=== PATIENT | male | born 1965 | race African-American/Black ===

== ENCOUNTER 2024-08-31 14:41 | Emergency (ER) | payer OTHER ==
--- OUTSIDE RECORDS SUMMARY | 2024-08-31 14:44 | XMS REPORT | Continuity of Care Document ---
Author Name Unknown Address [address] [facility] [address] [place] [address] [facility] Address [address] [facility] [address] [place] [address] Care Team Providers Care Coffin Maker Name Role Phone Pcp, Patient Does Not Have A Primary Care Physic satnam YUSRA CASTLE Attending Clinician LILIANA Nicholas Attending Clinician BERNA Francis Attending Clinician Berna Connelly MD Attending Clinician HANSEL Attending Clinician Unavailable ADELE KISER Attending Clinician Unavail able ELDER CERNA Attending Clinician Unavailable Tom Attending Clinician Unavailable ALDAIR SWAN Attending Clinician UnavailSONDRA Montesinos Attending Clinician Unavailable TAE OLIVO Attending Clinician Unavailable JAZZMINE HART Attending Clinician Unavailable DANE NIELSON Attending Clinician Unavailable JUSTIN VASQUEZ Attending Clinician Unavailable PEPITO SCHULTZ Attending Clinician Unavailab MIGUEL ANGEL Brown Attending Clinician Unavailable DIOR UGARTE Attending Clinician Unavailable AYDEN PERALTA Attending Clinician Unavailable YUSRA CASTLE Admitting Clinician Unavailenriqueta HAMM Admitting Clinician Unavailable Tom Admitting Clinician Unavailable JAZZMINE HART Admitting Clinician Unavailable AYDEN PERALTA Admitting Clinician Unavailable DANE NIELSON Admitting Clinician Unavailable Payers Payer Name Policy Type Policy Number Effective Date Expirati on Date Source [facility] DUAL COMP CHOICE PPO [id number] 2022 00:00:00 [facility] [id number] 2022 00:00:00 [facility] (MEDICARE REPLACEMENT/ADVANTA GE - HMO) [id number] 2019 00:00:00 [facility] (MEDICAID HMO) [id number] 2016 00:00:00 Problems Condition Name Condition Details Condition Category Status Onset Date Resolution Date Last Treatment Date Treating Clinician Comments Source Seizure disorder Seizure Disorder Problem Active 3-31 00:00: 00 [facility] 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 1- 00:00: 00 [facility] Depressive disorder Depressive Disorder Problem Active 1 00:00: 00 [facility] Seizure Seizure Problem Active 09-16 00:00: 00 [facility] Lung mass Lung Mass Problem Active [facility] Dysphagia Dysphagia Problem Active [facility] Hypertroph y of nasal turbinates Hypertroph y of Nasal Turbinates Problem Active [facility] Malignant tumor of larynx Malignant Tumor of Larynx Problem Active [facility] Smoker Smoker Problem Active [facility] Maxillary sinusitis Maxillary Sinusitis Problem [facility] Deviated nasal septum Deviated Nasal Septum Problem Active [facility] Pansinusit is Pansinusit is Problem Active [facility] Sinusitis Sinusitis Problem Active [facility] 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 [facility] Headache Headache Problem Active [facility] Hoarse Hoarse Problem Active [facility] Choking Choking Problem Active [facility] Cough Cough Problem Active [facility] Allergies, Adverse Reactions, Alerts Allergy Name Allergy Type Status Severity Reaction(s) Onset Date Inactive Date Treating Clinician Comments Source NO KNOWN ALLERGIE S Drug Class Active [facility] Grape Allergy to substanc e Active [facility] Social History Social Habit Start Date Stop Date Quantity Comments Source Exposure to SARS-CoV-2 (event) 2022-11-03 00:00:00 2022-11-13 11:23:00 Not sure [facility] Sex Ass[birth year] At 1965 00:00:00 1965 00:00:00 [facility] Smoking Status Start Date Stop Date Source Heavy Tobacco Smoker [facility] Tobacco smoking consumption unknown [facility] Medications Ordered Medication Name Filled Medication Name Start Date Stop Date Current Medication? Ordering Clinician Indication Dosage Frequency Signature (SIG) Comments Components Source OLANZapine (ZYPREXA) injection 10 mg 11-13 16:45: 00 11-13 16:55 :00 No 10mg 10 mg, Intramuscu lar, ONCE, 1 dose, On Sat11/13/22 at 1145, TI [facility] OLANZapine 5 mg tablet 11-13 00:00: 00 Yes [id number] 5mg Take 1 tablet by mouth in the morning. [facility] divalproex 500 mg tablet,magi yed release Take 1 tablet twice a day by oral route. divalproex 500 mg tablet,magi yed release Take 1 tablet twice a day by oral route. No 1 BID divalproex 500 mg tablet,del ayed release Take 1 tablet twice a day by oral route. [facility] divalproex ER 500 mg tablet,exte nded release 24 hr Take 1 tablet twice a day by oral route. divalproex ER 500 mg tablet,exte nded release 24 hr Take 1 tablet twice a day by oral route. No divalproex ER 500 mg tablet,ext ended release 24 hr Take 1 tablet twice a day by oral route. [facility] permethrin 5 % topical cream APPLY (THOROUGHLY MASSAGE INTO SKIN FROM HEAD TO SOLES OF FEET) BY TOPICAL ROUTE ONCE LEAVE ON FOR 8-14 HR, THEN REMOVE BY THOROUGH WASHING permethrin 5 % topical cream APPLY (THOROUGHLY MASSAGE INTO SKIN FROM HEAD TO SOLES OF FEET) BY TOPICAL ROUTE ONCE LEAVE ON FOR 8-14 HR, THEN REMOVE BY THOROUGH WASHING No permethrin 5 % topical cream APPLY (THOROUGHL Y MASSAGE INTO SKIN FROM HEAD TO SOLES OF FEET) BY TOPICAL ROUTE ONCE LEAVE ON FOR 8-14 HR, THEN REMOVE BY THOROUGH WASHING [facility] quetiapine 400 mg tablet Take 2 tablets every day by oral route at bedtime for 30 days. quetiapine 400 mg tablet Take 2 tablets every day by oral route at bedtime for 30 days. No 2 Q1D quetiapine 400 mg tablet Take 2 tablets every day by oral route at bedtime for 30 days. [facility] Vital Signs Vital Name Observation Time Observation Value Comments S ource BP Diastolic 2019-09-16 00:00:00 87 mm[Hg] [facility] Height 2019-09-16 00:00:00 71 [in_i] [facility] BMI (Body Mass Index) 2019-09-16 00:00:00 19.2 kg/m2 [facility] BP Systolic 2019-09-16 00:00:00 131 mm[Hg] [facility] Body Weight 2019-09-16 00:00:00 2208 [oz_av] [facility] BP Diastolic 2019-05-19 00:00:00 68 mm[Hg] [facility] BP Systolic 2019-05-19 00:00:00 97 mm[Hg] [facility] Body Weight 2019-05-19 00:00:00 2256 [oz_av] [facility] Procedures Procedure Date / Time Performed Performing Clinicia n Source NOTICE OF PRIVACY PRACTICES 2022-11-13 16:15:54 Doctor Unassigned, [place] [facility] CONSENT/REFUSAL FOR DIAGNOSIS AND TREATMENT 2022-11-13 16:15:29 Doctor Unassigned, [place] [facility] Encounters Start Date/Time End Date/Time Encounter Type Admission Type Attending [facility] Care Department Encounter ID Source 2024-02-09 15:06:00 2024-02-12 18:00:00 Inpatient ER YUSRA CASTLE [facility] [id number] [facility] 2023-09-22 10:44:00 2023-09-22 10:44:00 Outpatient LILIANA MUNOZ [facility] [id number] [facility] 2022-11-13 11:23:00 2022-11-13 12:52:00 Emergency X BERNA URRUTIA [facility] ERT [id number] [facility] 2022-11-13 11:23:00 2022-11-13 12:52:00 Emergency Berna Urrutia [facility] [id number] [facility] 2022-03-22 00:00:00 2022-03-22 00:00:00 Outpatient EMILY MCCLOUD [facility] [id number] [facility] 2021-09-11 23:40:00 2021-09-12 01:44:00 Emergency ER ADELE KISER [facility] [id number] [facility] 2020-11-25 10:33:00 2020-11-25 11:10:00 Emergency ER ELDER CERNA [facility] [id number] [facility] 2020-07-13 02:19:00 2020-07-13 02:19:00 Outpatient Tom MORA [facility] [id number] [facility] 2020-07-13 02:19:00 2020-07-13 02:19:00 Outpatient cMcDonald [facility] [id number] [facility] 2020-01-29 12:39:00 2020-01-29 19:15:00 Emergency ER ALDAIR SWAN [facility] [id number] [facility] 2020-01-06 01:07:00 2020-01-06 01:07:00 Outpatient cMcDonald [facility]G [id number] [facility] 2019-11-24 06:58:00 2019-11-24 06:58:00 Outpatient cMcDonald [facility] [id number] [facility] 2019-11-24 00:00:00 2019-11-24 00:00:00 Amadeo Biswas MD: [address] [facility] [address], [place] [address] , Ph. [facility] [id number] [facility] 2019-11-20 05:34:00 2019-11-20 05:34:00 Outpatient cMcDonald [facility]G [id number] [facility] 2019-09-16 10:06:00 2019-09-16 10:06:00 Outpatient cMcDonald [facility] [id number] [facility] 2019-09-16 00:00:00 2019-09-16 00:00:00 Amadeo Biswas MD: [address] [facility] [address], [place] [address] , Ph. [facility] [id number] [facility] 2019-06-30 17:31:00 2019-07-01 00:15:00 Emergency ER ALDAIR SWAN [facility] [id number] [facility] 2019-05-19 00:00:00 2019-05-19 00:00:00 Amadeo Biswas MD: [address] [facility] [address], [place] [address] , Ph. [facility] [place] [facility] [id number] [facility] 2019-03-29 16:02:00 2019-03-29 17:13:00 Emergency ER SONDRA PARNELL [facility] [id number] [facility] 2018-07-01 10:09:00 2018-07-01 13:03:00 Emergency ER TAE OLIVO [facility] [id number] [facility] 2018-01-07 09:56:00 2018-01-07 11:39:00 Emergency ER ADELE KISER [facility] [id number] [facility] 2017-01-07 12:31:00 2017-01-09 15:00:00 Inpatient ER JAZZMINE HART [facility] [id number] [facility] 2016-05-07 08:05:00 2016-05-07 08:05:00 Outpatient DANE YOUNG [facility] [id number] [facility] 2016-01-17 08:56:00 2016-01-18 09:31:00 Outpatient DANE YOUNG [facility] [id number] [facility] 2015-12-05 07:59:00 2015-12-05 07:59:00 Outpatient DANE YOUNG [facility] [id number] [facility] 2014-01-21 19:19:00 2014-01-21 20:36:00 Emergency ER JUSTIN VASQUEZ [facility] [id number] [facility] 2014-01-08 09:51:00 2014-01-08 11:00:00 Emergency ER PEPITO SCHULTZ [facility] [id number] [facility] 2006-12-17 21:32:00 2006-12-18 00:15:00 Emergency ER PEPITO SCHULTZ [facility] [id number] [facility] 2006-02-26 04:21:00 2006-02-26 07:25:00 Emergency ER MOUSTAPHAJOHN PEPITO [facility] [id number] [facility] 2005-11-09 07:04:00 2005-11-09 07:04:00 Outpatient MIGUEL ANGEL PELAEZ [facility] [id number] [facility] 2002-08-07 11:03:00 2002-08-07 11:03:00 Outpatient DIOR CONTRERAS [facility] [id number] [facility] 2002-06-10 00:32:00 2002-06-10 10:30:00 Inpatient ER AYDEN PERALTA [facility] [id number] [facility] 1999-03-25 00:49:00 1999-03-25 18:30:00 Inpatient ER DANE NIELSON [facility] [id number] [facility]
--- NOTE | 2024-08-31 17:25 | EDPHYS ---
Physician Documentation [facility] Name: Jah Solomon Age: 59 yrs Sex: Male : 1965 Arrival Date: 08/31/2024 Time: 14:41 Bed DX1 Private MD: ED Physician Nasima Cabrera HPI: 08/31 18:54 This 59 yrs old Black Male presents to ER via Ambulatory with complaints of Parasite sb4 inside of him. 18:57 patient states that he has bugs crawling under his skin and in his ears. states this sb4 has been going on for a few years. has tried several over the counter creams and ointments without any relief. states that he has been diagnosed with schizophrenia but "is not schizophrenic" only takes Seroquel PRN. Historical: - Allergies: 14:50 No Known Allergies; hb - Home Meds: 14:50 None [Active]; hb - PMHx: 18:59 Schizophrenia; sb4 - PSHx: 14:50 Leg - Right; hb ROS: 18:59 Constitutional: Negative for fever, chills, and weight loss, sb4 18:59 Skin: Positive for itching, 18:59 All other systems are negative, Exam: 18:59 Head/Face: Normocephalic, atraumatic. Eyes: Extra-ocular motions intact. Periorbital sb4 areas with no swelling, redness, or edema. ENT: Mucous membranes moist. Respiratory: No increased work of breathing, no retractions or nasal flaring. 18:59 Constitutional: The patient appears alert, awake, anxious, restless, unkempt, 18:59 Skin: excoriations left bicep. 18:59 Psych: rapid speech, flight of ideas. Vital Signs: 14:49 BP 121 / 86; Pulse 88; Resp 16; Temp 98.4; Pulse Ox 100% on R/A; Weight 64.86 kg; hb Height 6 ft. 1 in. ; Pain 3/10; 14:49 Body Mass Index 18.87 (64.86 kg, 185.42 cm) hb 14:49 Pain Scale: Adult hb MDM: 15:00 Medical Screening Exam initiated sb4 19:00 Data reviewed: vital signs, nurses notes, and as a result, I will discharge patient. sb4 Counseling: I had a detailed discussion with the patient and/or guardian regarding the historical points, exam findings, and any diagnostic results supporting the discharge/admit diagnosis, the need for outpatient follow up, for definitive care, to return to the emergency department if symptoms worsen or persist or if there are any questions or concerns that arise at home. Administered Medications: 17:46 Drug: diphenhydrAMINE IM 25 mg IM once Route: IM; Site: left deltoid; ss 17:53 Follow up: Response: No adverse reaction; Medication Administered at Departure ss 17:46 Drug: Dexamethasone IM 10 mg IM once Route: IM; Site: right deltoid; ss 17:53 Follow up: Response: No adverse reaction; Medication Administered at Departure ss Disposition Summary: 08/31/24 17:25 Discharge Ordered Notes: Location: Home sb4 Problem: new sb4 Symptoms: have improved sb4 Condition: Stable sb4 Diagnosis - Pruritus, unspecified sb4 Followup: sb4 - With: Private Physician - When: As needed - Reason: Recheck today's complaints, Re-evaluation by your physician Discharge Instructions: - Discharge Summary Sheet sb4 - Pruritus sb4 Forms: - Patient Portal Instructions sb4 - Leadership Thank You Letter sb4 Prescriptions: - Hydroxyzine HCl 25 mg Oral Tablet - take 1 tablet ORAL route every 6 hours As needed; 30 tablet; Refills: 0, sb4 Product Selection Permitted Addendum: 09/03/2024 19:59 Co-signature as Attending Physician, Nasima Cabrera MD I reviewed the patient's care g b1 provided by the Advanced Practice Provider and agree with the diagnosis and treatment plan. Signatures: Svetlana Rocha RN RN Fern Luis RN RN hb Brown, Sophia, PA-C PA-C sb4 Blocker, Gina, MD MD gb1 Corrections: (The following items were deleted from the chart) 08/31 18:59 14:50 PMHx: None; italia sbBabak 18:59 18:57 The history from the nurse's notes was reviewed and I agree with what is sb4 documented. sb4
--- NOTE | 2024-08-31 17:25 | ER ---
Nurse's Notes [facility] Name: Jah Solomon Age: 59 yrs Sex: Male : 1965 Arrival Date: 08/31/2024 Time: 14:41 Bed DX1 Private MD: Diagnosis: Pruritus, unspecified Presentation: 08/31 14:49 Chief complaint: Patient states: "Every time I go outside them fleas attack me, I have hb had them for 2 years." Abrasions noted to left hand from recent fall, bleeding controlled. Coronavirus screen: At this time, the client does not indicate any symptoms associated with coronavirus-19. Ebola Screen: No symptoms or risks identified at this time. Initial Sepsis Screen: Does the patient meet any 2 criteria? No. Patient's initial sepsis screen is negative. Does the patient have a suspected source of infection? No. Patient's initial sepsis screen is negative. Risk Assessment: Do you want to hurt yourself or someone else? Patient reports no desire to harm self or others. Onset of symptoms was 2022. 14:49 Method Of Arrival: Ambulatory hb 14:49 Acuity: ELIE 4 hb Historical: - Allergies: 14:50 No Known Allergies; hb - Home Meds: 14:50 None [Active]; hb - PMHx: 18:59 Schizophrenia; sb4 - PSHx: 14:50 Leg - Right; hb Screenin:53 Abuse screen: Denies threats or abuse. Denies injuries from another. Nutritional ss screening: No deficits noted. Tuberculosis screening: Never had TB. Assessment: 17:53 Reassessment: abrasions to L hand cleaned with soap and water, dressed with triple ss antibiotic ointment and dressed with 4x4s and KACI wrap. General: Appears in no apparent distress. uncomfortable, Behavior is calm, cooperative. Pain: Complains of pain in left hand Pain currently is 3 out of 10 on a pain scale. Neuro: Level of Consciousness is awake, alert, obeys commands, Oriented to person, place, time, situation. Respiratory: Airway is patent Respiratory effort is even, unlabored, Respiratory pattern is regular, symmetrical. EENT: Nares are clear Oral mucosa is moist. Derm: Skin is intact, is healthy with good turgor, Skin is dry, Skin is pink, warm \\T\\ dry. black. Vital Signs: 14:49 BP 121 / 86; Pulse 88; Resp 16; Temp 98.4; Pulse Ox 100% on R/A; Weight 64.86 kg; hb Height 6 ft. 1 in. ; Pain 3/10; 14:49 Body Mass Index 18.87 (64.86 kg, 185.42 cm) hb 14:49 Pain Scale: Adult hb ED Course: 14:44 Patient arrived in ED. im 14:50 Triage completed. hb 15:00 Yanni Girard PA-C is PHCP. sb4 15:00 Nasima Cabrera MD is Attending Physician. sb4 17:53 Patient has correct armband on for positive identification. ss 17:57 No provider procedures requiring assistance completed. Patient did not have IV access ss during this emergency room visit. Administered Medications: 17:46 Drug: diphenhydrAMINE IM 25 mg IM once Route: IM; Site: left deltoid; ss 17:53 Follow up: Response: No adverse reaction; Medication Administered at Departure ss 17:46 Drug: Dexamethasone IM 10 mg IM once Route: IM; Site: right deltoid; ss 17:53 Follow up: Response: No adverse reaction; Medication Administered at Departure ss Medication: 17:53 VIS not applicable for this client. ss Outcome: 17:25 Discharge ordered by . sb4 17:57 Discharged to home ambulatory, ss 17:57 Condition: good 17:57 Discharge instructions given to patient, family, Instructed on discharge instructions, follow up and referral plans. medication usage, Demonstrated understanding of instructions, follow-up care, medications, 17:58 Patient left the ED. ss Signatures: Svetlana Rocha RN RN Fern Luis RN RN Yanni Girard PA-C PA-C sb4 Eileen Worley im Corrections: (The following items were deleted from the chart) 14:53 14:49 Chief complaint: Patient states: "Every time I go outside them fleas attack me, I hb have had them for 2 years." 18:59 14:50 PMHx: None; sb4 18:59 18:57 The history from the nurse's notes was reviewed and I agree with what is sb4 documented. sb4
[2024-08-31] MEDS ORDERED: DIPHENHYDRAMINE 50 MG/ML VIAL ONE (17:36)
[2024-08-31] MEDS ORDERED: dexAMETHasone 10 MG/ML VIAL ONE (17:36)
[2024-08-31 18:25] VITALS: BP 121/86; TEMP 98.4; O2SAT 100
== END 2024-08-31 17:58 | disposition home or self-care (01) ==
LOC: ER 14:41
DX: L29.9 Pruritus, unspecified (principal); F20.9 Schizophrenia, unspecified
CPT/HCPCS: 96372; 99284; J1200; J1100

== ENCOUNTER 2024-09-07 22:53 | Emergency (ER) | payer OTHER ==
--- OUTSIDE RECORDS SUMMARY | 2024-09-07 22:55 | XMS REPORT | Continuity of Care Document ---
Author Name Unknown Address [address] [facility] [address] [place] [address] [facility] thconnect Address [address] [facility] [address] [place] [address] Care Team Providers Care Manager Occupational Name Role Phone Pcp, Patient Does Not Have A Primary Care Physic satnam YUSRA CASTLE Attending Clinician LILIANA Nicholas Attending Clinician BERNA Francis Attending Clinician Berna Connelly MD Attending Clinician HANSEL Attending Clinician Unavailable ADELE KISER Attending Clinician Unavail able ELDER CERNA Attending Clinician Unavailable oTm Attending Clinician Unavailable ALDAIR SWAN Attending Clinician [...] Number Effective Date Expirati on Date Source [facility] DUAL COMP CHOICE PPO FLO [id number] 2022 00:00:00 [facility] PLUS [id number] 2022 00:00:00 [facility] (MEDICARE REPLACEMENT/ADVANTA GE - HMO) [id number] 2019 00:00:00 [facility] (MEDICAID HMO) [id number] 2016 00:00:00 Problems Condition Name Condition Details [...] Group Maxillary sinusitis Maxillary Sinusitis Problem [facility] Deviated nasal septum Deviated Nasal Septum Problem Active [facility] Pansinusit is Pansinusit is Problem Active [facility] Sinusitis Sinusitis Problem Active [facility] 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 Social History Social Habit Start Date Stop Date Quantity Comments Source Exposure to SARS-CoV-2 (event) 2022-11-03 00:00:00 2022-11-13 11:23:00 Not sure [facility] Sex Assigned At 1965 00:00:00 1965 00:00:00 [facility] Smoking Status Start Date Stop Date Source Heavy Tobacco Smoker [facility] Tobacco smoking consumption unknown [facility] Medications Ordered Medication Name Filled Medication Name Start Date Stop Date Current Medication? Ordering Clinician Indication Dosage Frequency Signature (SIG) Comments Components Source OLANZapine (ZYPREXA) injection 10 mg 11-13 16:45: 00 11-13 16:55 :00 No 10mg 10 mg, Intramuscu lar, ONCE, 1 dose, On Sat11/13/22 at 1145, TI [facility] OLANZapine 5 mg tablet 11-13 00:00: 00 Yes [id number] 5mg Take 1 tablet by mouth in the morning. [facility] divalproex 500 mg tablet,magi yed release Take 1 tablet twice a day by oral route. divalproex 500 mg tablet,magi yed release Take 1 tablet twice a day by oral route. No 1 BID divalproex 500 mg tablet,del ayed release Take 1 tablet twice a day by oral route. [facility] divalproex ER 500 mg tablet,exte nded release 24 hr Take 1 tablet twice a day by oral route. divalproex ER 500 mg tablet,exte nded release 24 hr Take 1 tablet twice a day by oral route. No divalproex ER 500 mg tablet,ext ended release 24 hr Take 1 tablet twice a day by oral route. [facility] permethrin 5 % topical cream [...] THEN REMOVE BY THOROUGH WASHING [facility] quetiapine 400 mg tablet Take 2 tablets every day by oral route at bedtime for 30 days. quetiapine 400 mg tablet Take 2 tablets every day by oral route at bedtime for 30 days. No 2 Q1D quetiapine 400 mg tablet Take 2 tablets every day by oral route at bedtime for [address] [facility] Vital Signs Vital Name Observation Time Observation Value Comments S ource BP Diastolic 2019-09-16 00:00:00 87 mm[Hg] [facility] Height 2019-09-16 00:00:00 71 [in_i] [facility] BMI (Body Mass Index) 2019-09-16 00:00:00 19.2 kg/m2 [facility] BP Systolic 2019-09-16 00:00:00 131 mm[Hg] [facility] Body Weight 2019-09-16 00:00:00 2208 [oz_av] [facility] BP Diastolic 2019-05-19 00:00:00 68 mm[Hg] [facility] BP Systolic 2019-05-19 00:00:00 97 mm[Hg] [facility] Body Weight 2019-05-19 00:00:00 2256 [oz_av] [facility] Procedures Procedure Date / Time Performed Performing Clinicia n Source NOTICE OF PRIVACY PRACTICES 2022-11-13 16:15:54 Doctor Unassigned, [place] [facility] CONSENT/REFUSAL FOR DIAGNOSIS AND TREATMENT 2022-11-13 16:15:29 Doctor Unassigned, [place] [facility] Encounters Start Date/Time End Date/Time Encounter Type Admission Type Attending [facility] Care Facility Care Department Encounter ID Source 2024-02-09 15:06:00 2024-02-12 18:00:00 Inpatient ER YUSRA CASTLE [facility] [id number] [facility] 2023-09-22 10:44:00 2023-09-22 10:44:00 Outpatient LILIANA MUNOZ [facility] [id number] [facility] 2022-11-13 11:23:00 2022-11-13 12:52:00 Emergency X BERNA URRUTIA [facility] ERT [id number] [facility] 2022-11-13 11:23:00 2022-11-13 12:52:00 Emergency Berna Urrutia [facility] [id number] [facility] 2022-03-22 00:00:00 2022-03-22 00:00:00 Outpatient EMILY MCCLOUD [facility] [id number] [facility] Program 2021-09-11 23:40:00 2021-09-12 01:44:00 Emergency ER ADELE KISER [facility] [id number] [facility] 2020-11-25 10:33:00 2020-11-25 11:10:00 Emergency ER ELDER CERNA [facility] [id number] [facility] 2020-07-13 02:19:00 2020-07-13 02:19:00 Outpatient Tom [facility] [id number] [facility] 2020-07-13 02:19:00 2020-07-13 02:19:00 Outpatient cMcDonald [facility] [id number] [facility] 2020-01-29 12:39:00 2020-01-29 19:15:00 Emergency ER ALDAIR SWAN [facility] [id number] [facility] 2020-01-06 01:07:00 2020-01-06 01:07:00 Outpatient cMcDonald [facility]G [id number] [facility] 2019-11-24 06:58:00 2019-11-24 06:58:00 Outpatient cMcDonald [facility]G [id number] [facility] 2019-11-24 00:00:00 2019-11-24 00:00:00 Amadeo Biswas MD: [address] [facility] [address], [place] [address] , [facility]. [facility] [id number] [facility] 2019-11-20 05:34:00 2019-11-20 05:34:00 Outpatient cMcDonald [facility]G [id number] [facility] 2019-09-16 10:06:00 2019-09-16 10:06:00 Outpatient cMcDonald [facility]G [id number] [facility] 2019-09-16 00:00:00 2019-09-16 00:00:00 Amadeo Biswas MD: [address] [facility] [address], [place] [address] , [facility] [id number] [facility] 2019-06-30 17:31:00 2019-07-01 00:15:00 Emergency ER ALDAIR SWAN [facility] [id number] [facility] 2019-05-19 00:00:00 2019-05-19 00:00:00 Amadeo Biswas MD: [address] [facility] [address], [place] [address] , Ph. [facility] [place] - [facility] [id number] [facility] 2019-03-29 16:02:00 2019-03-29 17:13:00 Emergency ER SONDRA PARNELL [facility] [id number] [facility] 2018-07-01 10:09:00 2018-07-01 13:03:00 Emergency ER TAE OLIVO [facility] [id number] [facility] 2018-01-07 09:56:00 2018-01-07 11:39:00 Emergency ER ADELE KISER [facility] [id number] [facility] 2017-01-07 12:31:00 2017-01-09 15:00:00 Inpatient ER JAZZMINE HART [facility] [id number] [facility] 2016-05-07 08:05:00 2016-05-07 08:05:00 Outpatient DANE YOUNG [facility] [id number] [facility] 2016-01-17 08:56:00 2016-01-18 09:31:00 Outpatient DANE YOUNG [facility] [id number] [facility] 2015-12-05 07:59:00 2015-12-05 07:59:00 Outpatient DANE YOUNG [facility] [id number] [facility] 2014-01-21 19:19:00 2014-01-21 20:36:00 Emergency ER JUSTIN VASQUEZ [facility] [id number] [facility] 2014-01-08 09:51:00 2014-01-08 11:00:00 Emergency ER PEPITO SCHULTZ [facility] [id number] [facility] 2006-12-17 21:32:00 2006-12-18 00:15:00 Emergency ER PEPITO SCHULTZ [facility] [id number] [facility] 2006-02-26 04:21:00 2006-02-26 07:25:00 Emergency ER HARJINDERROSEANNE PEPITO [facility] [id number] [facility] 2005-11-09 07:04:00 2005-11-09 07:04:00 Outpatient MIGUEL ANGEL PELAEZ [facility] [id number] [facility] 2002-08-07 11:03:00 2002-08-07 11:03:00 Outpatient DIOR CONTRERAS [facility] [id number] [facility] 2002-06-10 00:32:00 2002-06-10 10:30:00 Inpatient ER AYDEN [facility] [id number] [facility] 1999-03-25 00:49:00 1999-03-25 18:30:00 Inpatient ER DANE NIELSON [facility] [id number] [facility]
[2024-09-07] MEDS ORDERED: METHYLPREDNISOLONE 125 MG INJ ONE (23:25)
[2024-09-07] MEDS ORDERED: IPRATROPIUM BROM 0.5MG/2.5ML ONE (23:25)
[2024-09-07] MEDS ORDERED: ALBUTEROL 2.5 MG/3 ML NEB SOL ONE (23:25)
[2024-09-07 23:59] LABS: Absolute Lymphocytes (CBC) 1.3 K/uL (0.7-4.9); Absolute Monocytes 1.1 K/uL (0.1-1.3); Absolute Neutrophil 7.2 K/uL (1.8-8.0); Basophils % 0.4 % (0-1.3); Hematocrit 37.9 % (39.6-49.0); Hemoglobin 12.3 g/dL (13.6-17.9); Lymphocytes % 13.5 % (15.3-44.8); MCH 27.7 pg (27.0-35.0); MCHC 32.5 g/dL (32.0-36.0); MCV 85.1 fL (80-100); MPV 8.4 fL (7.6-11.3); Monocytes % 11.1 % (3.3-12.3); Platelets 183 thou/uL (152-406); RBC Red Blood Cell Count 4.45 M/uL (4.33-5.43); Red Cell Distribution Width 13.9 % (12.1-15.2)
[2024-09-08 00:01] LABS: PT Prothrombin Time 14.1 SECONDS (9.4-12.5); Protime INR 1.35
[2024-09-08 00:09] LABS: SARS-CoV-2 Antigen CONTROL BLUE LINE VIS/BG OK; SARS-CoV-2 Antigen Rapid Res Negative (Negative)
[2024-09-08 00:11] LABS: Anion Gap 5.8 mEq/L (5.0-15.0); Potassium 3.8 mEq/L (3.5-5.1); Troponin High Sensitivity 3.4 pg/mL (<58.9)
[2024-09-08] MEDS ORDERED: ACETAMINOPHEN 500 MG TAB ONE (00:48)
--- NOTE | 2024-09-08 00:54 | EDPHYS ---
Physician Documentation [facility] Name: Jah Solomon Age: 59 yrs Sex: Male : 1965 Arrival Date: 09/07/2024 Time: 22:53 Bed 5 Private MD: ED Physician Sigifredo Cage HPI: 09/07 23:02 This 59 yrs old Black Male presents to ER via Unassigned with complaints of Breathing ec2 Difficulty. 23:02 Patient arrives today d/t concern for progressive . ec2 23:04 Patient arrives today for evaluation of progressive shortness of breath. Patient ec2 reports several days of symptoms. Is been having cough. Reports he is 1/2 pack/day smoker. No fevers or chills, no nausea or vomiting.. Historical: - Allergies: 22:58 No Known Allergies; ha1 - PMHx: 22:58 Schizophrenia; ha1 - PSHx: 22:58 leg - right; ha1 - Immunization history:: Adult Immunizations up to date. - Infectious Disease History:: Denies. - Social history:: Smoking status: Patient reports the use of cigarette tobacco products, smokes one-half pack cigarettes per day. ROS: 23:04 Constitutional: as per hpi ec2 Exam: 23:04 Constitutional: GEN: NAD Head: atraumatic Eyes: EOMI Ears: External ears are ec2 normal. CV: regular rate LUNGS: Scattered wheezes noted. ABD: non-distended SKIN: no evidence of rashes MSK: no evidence of trauma Vital Signs: 22:58 BP 117 / 70; Pulse 100; Resp 18 S; Temp 98.4; Pulse Ox 92% on R/A; Weight 68.95 kg; ha1 Height 6 ft. 4 in. ; 09/08 00:01 BP 107 / 63; Pulse 90; Resp 18; Temp 98.2(O); Pulse Ox 96% on 2 lpm NC; br2 00:15 BP 115 / 64; Pulse 87; Resp 18; Pulse Ox 95% ; br2 01:02 BP 115 / 64; Pulse 88; Resp 18; Pulse Ox 100% on R/A; br2 09/07 22:58 Body Mass Index 18.50 (68.95 kg, 193.04 cm) [facility] MDM: 09/07 22:58 Medical Screening Exam initiated ec2 23:04 Data reviewed: vital signs, nurses notes. ED course: Patient arrives today for ec2 evaluation of worsening shortness of breath. Examination yields scattered wheezes. Will obtain lab work, EKG, chest x-ray, viral swabs. Will treat with DuoNeb and steroids as well.. 09/08 00:22 ED course: Metabolic profile reassuring, CBC reassuring. BMP within normal ranges, ec2 troponin within normal ranges, COVID testing negative. Flu testing negative.. 00:55 ED course: X-ray shows right sided consolidation. Patient with a curb 65 score of 0. ec2 Patient without hypoxia or significant work of breathing. Will discharge home and have outpatient management with antibiotic therapy and steroids. Return precautions given.. 01:09 ED course: EKG independently reviewed and interpreted by me, shows normal sinus rhythm, ec2 rate of 88, no acute ST segment elevations, intervals are nonactionable.. 09/07 22:59 Order name: Basic Metabolic Panel; Complete Time: 00:22 09/07 22:59 Order name: CBC with Diff; Complete Time: 00:22 09/07 22:59 Order name: NT PRO-BNP; Complete Time: 00:22 09/07 22:59 Order name: PT-INR; Complete Time: 00:22 09/07 22:59 Order name: Troponin HS; Complete Time: 00:22 09/07 23:02 Order name: Influenza Screen (a \T\ B); Complete Time: 23:53 09/07 23:02 Order name: SARS RAPID; Complete Time: 00:22 09/07 22:59 Order name: XRAY Chest (1 view) ec09/07 22:59 Order name: EKG; Complete Time: 22:59 09/07 22:59 Order name: Cardiac monitoring; Complete Time: 23:35 09/07 22:59 Order name: EKG - Nurse/Tech; Complete Time: 23:35 09/07 22:59 Order name: IV Saline Lock; Complete Time: 23:35 09/07 22:59 Order name: Labs collected and sent; Complete Time: 23:35 09/07 22:59 Order name: O2 Per Protocol; Complete Time: 23:35 09/07 22:59 Order name: O2 Sat Monitoring; Complete Time: 23:35 ec2 Administered Medications: 09/07 23:34 Drug: DuoNeb Nebulize (3:1) (2.5 mg - 0.5 mg) 3 ml Nebulizer once Route: Nebulizer; 09/08 00:53 Follow up: Response: Marked relief of symptoms 09/07 23:34 Drug: MethylPrednisoLONE IVP 125 mg IVP once Route: IVP; Site: right antecubital; 09/08 00:53 Follow up: Response: Marked relief of symptoms 00:53 Drug: Acetaminophen PO 1000 mg PO once Route: PO; 01:04 Follow up: Response: Medication administered at discharge. br2 Disposition Summary: 09/08/24 00:53 Discharge Ordered Notes: Location: Home ec2 Condition: Stable ec2 Diagnosis - COPD/ Chronic obstructive pulmonary disease with (acute) exacerbation ec2 Followup: ec2 - With: Private Physician - When: - Reason: Re-evaluation by your physician Discharge Instructions: - Discharge Summary Sheet ec2 - Chronic Obstructive Pulmonary Disease Exacerbation ec2 Forms: - Medication Reconciliation Form ec2 - Antibiotic Education ec2 - Prescription Opioid Use ec2 - Patient Portal Instructions ec2 - Leadership Thank You Letter ec2 Prescriptions: - albuterol sulfate 90 mcg/actuation Inhalation HFA Aerosol Inhaler - inhale 2 inhalation INHALATION route every 4 hours administer via ventilator; 1 ec2 unit; Refills: 0, Product Selection Permitted - Augmentin 875-125 mg Oral Tablet - take 1 tablet ORAL route every 12 hours for 10 days; 20 tablet; Refills: 0, ec2 Product Selection Permitted - Prednisone 20 mg Oral Tablet - take 2 tablets ORAL route once daily for 5 days; 10 tablet; Refills: 0, Product ec2 Selection Permitted Signatures: Dispatcher [employer] Isabel Vines RN RN ha1 Yury Miller RN RN jj7 Sigifredo Cage MD MD ec2 Joselin Wallace RN br2
--- NOTE | 2024-09-08 00:54 | ER ---
Nurse's Notes [facility] Name: Jah Solomon Age: 59 yrs Sex: Male : 1965 Arrival Date: 09/07/2024 Time: 22:53 Bed 5 Private MD: Diagnosis: COPD/ Chronic obstructive pulmonary disease with (acute) exacerbation Presentation: 09/07 22:58 Chief complaint: Patient states: SHORTNESS OF BREATH FOR THE PAST THREE DAYS. ha1 22:58 Coronavirus screen: Client denies travel out of the [place] in the last 14 days. Ebola ha1 Screen: No symptoms or risks identified at this time. Initial Sepsis Screen: Does the patient meet any 2 criteria? No. Patient's initial sepsis screen is negative. Does the patient have a suspected source of infection? No. Patient's initial sepsis screen is negative. Risk Assessment: Do you want to hurt yourself or someone else? Patient reports no desire to harm self or others. Onset of symptoms was September 04, 2024. 22:58 Method Of Arrival: Wheelchair ha1 22:58 Acuity: ELIE 2 ha1 Triage Assessment: 22:58 General: Appears comfortable, Behavior is anxious. Pain: Denies pain. Neuro: Level of ha1 Consciousness is awake, alert, obeys commands, Oriented to person, place, time, situation. Cardiovascular: Capillary refill < 3 seconds Patient's skin is warm and dry. Respiratory: Reports shortness of breath at rest Onset: The symptoms/episode began/occurred suddenly, the patient has moderate shortness of breath. GI: Abdomen is flat, non-distended. : No signs and/or symptoms were reported regarding the genitourinary system. Derm: Skin is moist, Skin is normal. Musculoskeletal: Circulation, motion, and sensation intact. Historical: - Allergies: 22:58 No Known Allergies; ha1 - PMHx: 22:58 Schizophrenia; ha1 - PSHx: 22:58 leg - right; ha1 - Immunization history:: Adult Immunizations up to date. - Infectious Disease History:: Denies. - Social history:: Smoking status: Patient reports the use of cigarette tobacco products, smokes one-half pack cigarettes per day. Screenin:49 [facility] ED Fall Risk Assessment (Adult) History of falling in the last 3 months, ha1 including since admission No falls in past 3 months (0 pts) Confusion or Disorientation No (0 pts) Intoxicated or Sedated No (0 pts) Impaired Gait No (0 pts) Mobility Assist Device Used No (0 pt) Altered Elimination No (0 pt) Score/Fall Risk Level 3 or more points = High Risk Oriented to surroundings, Maintained a safe environment, Educated pt \T\ family on fall prevention, incl call for assistance when getting out of bed, Hourly rounding (assess needs \T\ fall precautionary measures) done. Abuse screen: Denies threats or abuse. Denies injuries from another. Nutritional screening: No deficits noted. Tuberculosis screening: No symptoms or risk factors identified. Assessment: 23:00 General: Appears in no apparent distress. uncomfortable, Behavior is calm, cooperative, jj7 appropriate for age. 23:00 Reassessment: Patient and/or family updated on plan of care and expected duration. Pain br2 level reassessed. Patient is alert, oriented x 3, equal unlabored respirations, skin warm/dry/pink. General: Appears in no apparent distress. uncomfortable, Behavior is calm, cooperative. Pain: Complains of pain in chest Pain does not radiate. Pain currently is 10 out of 10 on a pain scale. Neuro: Cummins Agitation-Sedation Scale (RASS): 0 - Alert and Calm Level of Consciousness is awake, alert, obeys commands, Oriented to person, place, time, situation. Cardiovascular: Reports chest pain, shortness of breath, Rhythm is sinus tachycardia. Respiratory: Airway is patent Respiratory effort is even, unlabored, Respiratory pattern is regular, symmetrical, Breath sounds with wheezes bilaterally. GI: No signs and/or symptoms were reported involving the gastrointestinal system. : No signs and/or symptoms were reported regarding the genitourinary system. EENT: No signs and/or symptoms were reported regarding the EENT system. Derm: No signs and/or symptoms reported regarding the dermatologic system. 09/08 00:35 Musculoskeletal: Reports MUSCLE SPASMS IN HIS CHEST THAT COMES AND GOES. REQUEST FOR jj7 PAIN MEDS. WILL INFORM MD. Vital Signs: 09/07 22:58 BP 117 / 70; Pulse 100; Resp 18 S; Temp 98.4; Pulse Ox 92% on R/A; Weight 68.95 kg; ha1 Height 6 ft. 4 in. ; 09/08 00:01 BP 107 / 63; Pulse 90; Resp 18; Temp 98.2(O); Pulse Ox 96% on 2 lpm NC; br2 00:15 BP 115 / 64; Pulse 87; Resp 18; Pulse Ox 95% ; br2 01:02 BP 115 / 64; Pulse 88; Resp 18; Pulse Ox 100% on R/A; br2 09/07 22:58 Body Mass Index 18.50 (68.95 kg, 193.04 cm) ha1 ED Course: 09/07 22:56 Patient arrived in ED. gm2 22:56 Sigifredo Cage MD is Attending Physician. ec2 23:00 Inserted saline lock: 20 gauge in right antecubital area, using aseptic technique. br2 Blood collected. Flushed with 10 mL NS. 23:00 Patient has correct armband on for positive identification. Bed in low position. Call br2 light in reach. Side rails up X 1. 23:00 Provided Education on: PLAN OF CARE. br2 23:01 Yury Miller RN is Primary Nurse. jj7 23:16 SARS RAPID Sent. vk 23:16 Influenza Screen (a \T\ B) Sent. vk 23:16 COVID swab sent to lab. Flu and/or RSV swab sent to lab. vk 23:35 XRAY Chest (1 view) Sent. br2 23:35 Basic Metabolic Panel Sent. br2 23:36 CBC with Diff Sent. br2 23:36 NT PRO-BNP Sent. br2 23:36 PT-INR Sent. br2 23:36 Troponin HS Sent. br2 23:44 Triage completed. ha1 23:44 SARS RAPID Sent. vk 23:44 Influenza Screen (a \T\ B) Sent. vk 23:58 XRAY Chest (1 view) In Process Unspecified. EDMS 09/08 00:53 Diet: Patient given juice. Tolerated well. jj7 01:04 IV discontinued, intact, bleeding controlled, No redness/swelling at site. Pressure br2 dressing applied. 01:04 Arm band placed on right wrist. br2 01:05 No provider procedures requiring assistance completed. br2 Administered Medications: 09/07 23:34 Drug: DuoNeb Nebulize (3:1) (2.5 mg - 0.5 mg) 3 ml Nebulizer once Route: Nebulizer; jj7 01/14 00:53 Follow up: Response: Marked relief of symptoms 09/07 23:34 Drug: MethylPrednisoLONE IVP 125 mg IVP once Route: IVP; Site: right antecubital; 09/08 00:53 Follow up: Response: Marked relief of symptoms 00:53 Drug: Acetaminophen PO 1000 mg PO once Route: PO; 01:04 Follow up: Response: Medication administered at discharge. br2 Medication: 01:05 VIS not applicable for this client. br2 Outcome: 00:53 Discharge ordered by . ec2 01:05 Discharged to home ambulatory, br2 01:05 Condition: stable 01:05 Discharge instructions given to patient, Instructed on discharge instructions, follow up and referral plans. Demonstrated understanding of instructions, follow-up care, medications, Prescriptions given X 3, 01:06 Patient left the ED. br2 Signatures: Dispatcher [employer] Isabel Vines RN RN ha1 Yury Miller RN RN jj7 Sigifredo Cage MD MD ec2 Swati Ashley gm2 Laura Carr Belinda RN RN br2
--- NOTE | 2024-09-08 06:22 | RAD REPORT ---
EXAM DESCRIPTION: Chest Single View CLINICAL HISTORY: 1 years Male, DYSPNEA Comparison: Chest radiograph dated 02/09/2024 IMPRESSION: Chronic lung changes. Right lung base consolidation. No pleural effusion. No pneumothorax. Cardiomediastinal silhouette is within normal limits. No acute osseous abnormality. Electronically signed by: Hugh Davis DO 09/08/2024 12:44 AM PUBLICATION MANAGER 9 Due to temporary technical issues with the PACS/Robin reporting system, reports are being smooth d by the in-house radiologist without review as a courtesy to ensure prompt reporting the interpreting radiologist is fully responsible for the content of the report. Transcribed Date/Time: 09/08/2024 5:50 AM
[2024-09-08 17:18] VITALS: BP 115/64; TEMP 98.2; O2SAT 100
--- NOTE | 2024-09-10 12:00 | EKG ---
Test Date: 2024-09-07 Test Time: 23:30:45 Humane Agent: DENNIS MEASUREMENT RESULTS: Intervals: Rate: 88 AL: 124 QRSD: 76 QT: 376 QTc: 454 Cameron: P: 68 AL: 124 QRS: 79 T: 81 INTERPRETIVE STATEMENTS: Normal sinus rhythm Normal ECG No previous ECG available for comparison Electronically Signed On 09-10-24 11:58:28 [employer] by Alex Bravo
== END 2024-09-08 01:06 | disposition home or self-care (01) ==
LOC: ER 22:53
DX: J44.1 Chronic obstructive pulmonary disease with (acute) exacerbation (principal); F17.210 Nicotine dependence, cigarettes, uncomplicated; Z11.52 Encounter for screening for COVID-19
CPT/HCPCS: 93005; 85025; 80048; 36415; 85610; 84484; 83880; 87804 ×2; 71045; 96374; 99285; 87811; J7613; J7644; J2919